=== PATIENT | male | born 1955 | race Hispanic/Latino ===

== ENCOUNTER 2020-07-19 17:53 | Emergency (ER) | payer MEDICARE, OTHER ==
[2020-07-19] MEDS ORDERED: Ibuprofen 200 MG TAB ONE (18:51)
== END 2020-07-19 19:57 | disposition home or self-care (01) ==
LOC: ERS 17:53
DX: S83.91XA Sprain of unspecified site of right knee, initial encounter (principal); S80.812A Abrasion, left lower leg, initial encounter; S80.811A Abrasion, right lower leg, initial encounter; E03.9 Hypothyroidism, unspecified; E78.5 Hyperlipidemia, unspecified; E78.00 Pure hypercholesterolemia, unspecified; V40.5XXA Car driver injured in collision with pedestrian or animal in traffic accident, initial encounter